=== PATIENT | male | born 1950 ===

== ENCOUNTER → 2020-03-10 10:19 | Outpatient (CLI) | payer MEDICARE, SELFPAY ==
--- NOTE | ~2020-03-10 | US_ITS ---
EXAMINATION: US aorta [facility] DATE: 03/10/2020 10:53 INDICATION: Abdominal aneurysm screening with risk factors of hypertension, smoking and hypercholeste rolemia. TECHNIQUE: Grayscale, color Doppler, and pulsed Doppler images of the aorta and common iliac arteries were obtained. COMPARISON: None. FINDINGS: The proximal aorta measures 2.3 cm. The mid aorta measures 0.6 cm. The distal aorta measures 1.6 cm. The right common iliac artery measures 9 mm. The left common iliac artery measures 10 mm. IMPRESSION: 1. Normal caliber abdominal aorta. No aneurysm. Reviewed, dictated and finalized at location A. OPERATOR
--- NOTE | ~2020-03-10 | US_ITS ---
EXAMINATION: US soft tissue head and neck DATE: 03/10/2020 10:53 INDICATION: Nontoxic goiter. TECHNIQUE: Multiple ultrasound images of the thyroid were obtained. COMPARISON: None. FINDINGS: The right thyroid lobe measures 3.8 x 1.6 x 1.4 cm. The left thyroid lobe measures 4.0 x 1.5 x 1.5 c m. There is normal echotexture and echogenicity throughout the thyroid gland. There is a 4 mm nodule in right thyroid lobe, likely not clinically significant. Normal vascular flow is present. IMPRESSION: 1. 4 mm thyroid nodule, likely not clinically significant. No follow-up is needed. Reviewed, dictated and finalized at location B. [employer] IMPRESSION: 1. 4 mm thyroid nodule, likely not clinically significant. No follow-up is need ed.
== END ==
PROVIDERS: Visit Provider Family Medicine
DX: E04.1 Nontoxic single thyroid nodule (principal); Z87.891 Personal history of nicotine dependence
CPT/HCPCS: 76536; 76706

== ENCOUNTER → 2021-06-11 16:11 | Outpatient (CLI) | payer MEDICARE, SELFPAY ==
--- NOTE | ~2021-06-11 | MR_ITS ---
EXAMINATION: MR brain/brain stem wo con EXAM DATE: 06/11/2021 16:49 INDICATION: New onset headaches TECHNIQUE: Magnetic resonance imaging (MRI) of the brain/brain stem obtained without contrast. Jessica al T1, axial diffusion, gradient echo (T2*), T1, T2, FLAIR sequences obtained. There is no prior st udy for comparison. FINDINGS: There are no areas of restricted diffusion to suggest acute infarction. There is no acute hemorrhage seen on the T2*, a hemosiderin sensitive sequence. No intraparenchymal brain mass. The ve ntricles are normal in size. There are no extra-axial collections. Flow voids are seen in the cereb ral arteries on the T2-weighted sequences consistent with their expected patency. Patient has had bi lateral ocular lens surgery. Soft tissue is unremarkable. IMPRESSION: Unremarkable brain MRI examination. Reviewed, dictated and finalized at location A. M SPEC
== END ==
PROVIDERS: PCP Family Medicine; Visit Provider Nurse Practitioner Family
DX: R51.9 Headache, unspecified (principal); Z79.01 Long term (current) use of anticoagulants; H69.80 Other specified disorders of Eustachian tube, unspecified ear
CPT/HCPCS: 70551